=== PATIENT | female | born 1990 | race American Indian/Alaskan Native ===

== ENCOUNTER 2018-01-23 21:29 | Emergency (ER) | payer SELFPAY ==
[2018-01-23 21:35] VITALS: BP 142/73
== END 2018-01-23 23:00 | disposition left against medical advice (07) ==
LOC: ED 21:29
DX: K08.89 Other specified disorders of teeth and supporting structures (principal); Z53.21 Procedure and treatment not carried out due to patient leaving prior to being seen by health care provider